=== PATIENT | female | born 1960 | race Caucasian/White ===

== ENCOUNTER → 2018-06-07 | Outpatient (CLI) | payer BC ==
[~2018-06-07] MED LIST: GADOBUTROL 10 MMOL/10 ML (GADAVIST) VIAL IV ONE
--- NOTE | 2018-06-07 16:39 | Diagnostic Imaging Report ---
PROCEDURE: MR imaging abdomen with and without contrast. TECHNIQUE: Multiplanar, multisequence MR imaging of the abdomen was performed with and without contrast. INDICATION: Followup liver lesions seen on outside imaging. COMPARISON: None available. FINDINGS: There is mild signal dropout throughout the entire liver on opposed-phase imaging, indicative of diffuse hepatic steatosis. In the left hepatic lobe, there is a well-circumscribed T2 hyperintense nonenhancing cyst measuring 10 x 7 mm. In the anterior aspect of the superior left hepatic lobe (segment William), there is a subcentimeter focus of arterial enhancement which does not washout on delayed-phase images and has vague T2 hyperintensity. There are no concerning enhancing liver lesions. The gallbladder is well distended without filling defects to indicate cholelithiasis. No biliary duct dilatation. The common bile duct measures up to 6 mm in size. No choledocholithiasis. The pancreas, spleen, kidneys, and adrenals are all normal. No abdominal lymphadenopathy. Normal-caliber abdominal aorta. IMPRESSION: 1. There are no hepatic lesions that would suggest neoplastic process. 2. There is a simple cyst and a probable capillary-type hemangioma within the left hepatic lobe. 3. Diffuse hepatic steatosis. Dictated by: Dictated on workstation # [id number]
== END ==
LOC: RAD 13:36
PROVIDERS: ATTEND Family Medicine
DX: K76.0 Fatty (change of) liver, not elsewhere classified (principal)
CPT/HCPCS: 74183

== ENCOUNTER → 2019-04-05 | Outpatient (CLI) | payer BC ==
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
== END ==
LOC: RAD 14:06
PROVIDERS: ATTEND Family Medicine
DX: M75.101 Unspecified rotator cuff tear or rupture of right shoulder, not specified as traumatic (principal); Z98.890 Other specified postprocedural states; Z87.828 Personal history of other (healed) physical injury and trauma
CPT/HCPCS: 73221

== ENCOUNTER 2019-05-14 00:07 | Emergency (ER) | payer BC ==
[~2019-05-14] VITALS: Ht 165.1 cm; Wt 95.4 kg
[2019-05-14] MEDS ORDERED: fentaNYL INJECTION 100 MCG/2 ML AMP IVP STA (00:33)
--- NOTE | 2019-05-14 00:39 | ED General ---
General Stated Complaint: SOB,PAIN IN BACK,COUGH Source of Information: Patient History of Present Illness Date Seen by Provider: May 14, 2019 Time Seen by Provider: 00:14 Initial Comments 58-year-old female presenting with complaints of shortness of breath and pain in the mouth for back. She has pleuritic chest pain along with this. She has had subjective chills and increased cough in the last 24-48 hours. She had a right shoulder surgery on Monday with [facility] and was doing well until the last 36-48 hours and then tonight she was worse this evening. She was having increased pain in the middle of her back that was not improved with pain medicine at home. She reports that her cough is dry and she is not having anything come up with coughing. She tried taking her blood pressure and vitals at home but none of her equipment was working to be able to obtain her vitals. She had some nausea this evening as well. She states that she has had a normal bowel movement. She denies any pain with urination. Allergies and Home Medications Allergies Coded Allergies: No Known Drug Allergies (Unverified , 06/07/18) Home Medications Albuterol Sulfate 18 Gm Hfa.aer.ad, 2 PUFF INH Q4H PRN for SHORTNESS OF BREATH Prescribed by: BARBARA SCHROEDER on 05/14/19219 Azithromycin 500 Mg Tablet, 500 MG PO DAILY Prescribed by: BARBARA SCHROEDER on 05/14/19219 Patient Home Medication List Home Medication List Reviewed: Yes Review of Systems Review of Systems Constitutional: chills, dizziness, fever, malaise EENTM: no symptoms reported Respiratory: cough (dry and nonproductive), short of breath; No wheezing Cardiovascular: chest pain (middle of her back); No edema Gastrointestinal: No constipation, No diarrhea; nausea; No vomiting Genitourinary: no symptoms reported Musculoskeletal: joint pain (right shoulder pain consistent with her recent surgery.) Skin: no symptoms reported Psychiatric/Neurological: Denies Headache Hematologic/Lymphatic: Denies Blood Clots, Denies Easy Bleeding, Denies Easy Bruising Past Tyabsgf-Gfnfmi-Gnyiyh Hx Past Med/Social Hx: Reviewed Nursing Past Med/Soc Hx Patient Social History Recent Foreign Travel: No Contact w/Someone Who Travel: No Past Medical History Surgeries: Yes Orthopedic (right shoulder arthroscopy) Respiratory: No Physical Exam Vital Signs Vital Signs - First Documented 05/14/19 05/14/19 00:24 01:01 Temp 36.2 Pulse 95 Resp 18 B/P (MAP) 165/85 (111) Pulse Ox 74 O2 Delivery Room Air O2 Flow Rate 2.00 Capillary Refill : Height, Weight, BMI Height: '" Weight: lbs. oz. kg; BMI Method: General Appearance: No Apparent Distress, WD/WN HEENT: PERRL/EOMI, Pharynx Normal Neck: Full Range of Motion, Normal Inspection, Non Tender, Supple; No Carotid Bruit Respiratory: Lungs Clear, Normal Breath Sounds, No Accessory Muscle Use, No Respiratory Distress; No Stridor, No Wheezing; Other (tender to palpation in the middle of her back) Cardiovascular: Regular Rate, Rhythm, Normal Peripheral Pulses Gastrointestinal: No Pulsatile Mass, Non Tender, Soft Extremity: Normal Capillary Refill, No Pedal Edema Neurologic/Psychiatric: Alert, Oriented x3, No Motor/Sensory Deficits Skin: Normal Color, Warm/Dry Progress/Results/Core Measures Suspected Sepsis SIRS Temperature: Pulse: Respiratory Rate: Laboratory Tests 05/14/19 00:32: White Blood Count 8.0 Blood Pressure / Mean: Laboratory Tests 05/14/19 00:32: Creatinine 0.88, Platelet Count 254, Total Bilirubin 0.2 Results/Orders Lab Results Laboratory Tests Test 05/14/19 00:32 Range/Units White Blood Count 8.0 4.3-11.0 10^3/uL Red Blood Count 4.74 4.35-5.85 10^6/uL Hemoglobin 14.7 11.5-16.0 G/DL Hematocrit 45 35-52 % Mean Corpuscular Volume 96 80-99 FL Mean Corpuscular Hemoglobin 31 25-34 PG Mean Corpuscular Hemoglobin Concent 33 32-36 G/DL Red Cell Distribution Width 12.9 10.0-14.5 % Platelet Count 254 130-400 10^3/uL Mean Platelet Volume 12.5 H 7.4-10.4 FL Neutrophils (%) (Auto) 64 42-75 % Lymphocytes (%) (Auto) 19 12-44 % Monocytes (%) (Auto) 10 0-12 % Eosinophils (%) (Auto) 6 0-10 % Basophils (%) (Auto) 1 0-10 % Neutrophils # (Auto) 5.1 1.8-7.8 X 10^3 Lymphocytes # (Auto) 1.6 1.0-4.0 X 10^3 Monocytes # (Auto) 0.8 0.0-1.0 X 10^3 Eosinophils # (Auto) 0.4 H 0.0-0.3 10^3/uL Basophils # (Auto) 0.1 0.0-0.1 10^3/uL Sodium Level 142 135-145 MMOL/L Potassium Level 4.1 3.6-5.0 MMOL/L Chloride Level 105 98-107 MMOL/L Carbon Dioxide Level 27 21-32 MMOL/L Anion Gap 10 5-14 MMOL/L Blood Urea Nitrogen 14 7-18 MG/DL Creatinine 0.88 0.60-1.30 MG/DL Estimat Glomerular Filtration Rate > 60 BUN/Creatinine Ratio 16 Glucose Level 110 H 70-105 MG/DL Calcium Level 10.0 8.5-10.1 MG/DL Corrected Calcium 10.2 H 8.5-10.1 MG/DL Magnesium Level 2.1 1.6-2.4 MG/DL Total Bilirubin 0.2 0.1-1.0 MG/DL Aspartate Amino Transf (AST/SGOT) 18 5-34 U/L Alanine Aminotransferase (ALT/SGPT) 18 0-55 U/L Alkaline Phosphatase 110 40-136 U/L Troponin I < 0.30 <0.30 NG/ML Pro-B-Type Natriuretic Peptide 387.0 H <75.0 PG/ML Total Protein 6.5 6.4-8.2 GM/DL Albumin 3.7 3.2-4.5 GM/DL My Orders Orders - BARBARA SCHROEDER MD Cbc With Automated Diff (05/14/19 00:31) Comprehensive Metabolic Panel (05/14/19 00:31) Magnesium (05/14/19 00:31) Ekg Tracing (05/14/19:31) O2 (05/14/19 00:31) Ed Iv/Invasive Line Start (05/14/19:31) Monitor-Rhythm Ecg Trace Only (05/14/19:31) Ct Angio Chest W (05/14/19 00:31) Troponin I Fs (05/14/19 00:31) Probnp Fs (05/14/19:31) Fentanyl Injection (Sublimaze Injection (05/14/19 00:33) Iohexol Injection (Omnipaque 350 Mg/Ml 1 (05/14/19 00:45) Received Contrast (Hold Metformin- Contr (05/14/19 00:45) Ns (Ivpb) (Sodium Chloride 0.9% Ivpb Bag (05/14/19 00:45) Albuterol/Ipra Inhalation Soln (Duoneb I (05/14/19 02:12) Azithromycin Tablet (Zithromax Tablet) (05/14/19 02:12) Ceftriaxone For Iv Use (Rocephin For I (05/14/19 02:12) Svn Small Volume Nebulizer (05/14/19 02:12) Medications Given in ED Current Medications Medications Dose Ordered Sig/Chato Route Start Time Stop Time Status Last Admin Dose Admin Iohexol 125 ml ONCE ONCE IV 05/14/19 00:45 05/14/19 00:46 DC 05/14/19 00:44 125 ML Sodium Chloride 100 ml ONCE ONCE IV 05/14/19 00:45 05/14/19 00:46 DC 05/14/19 00:44 100 ML Vital Signs/I&O 05/14/19 05/14/19 05/14/19 00:24 01:01 02:31 Temp 36.2 36.2 Pulse 95 95 Resp 18 18 B/P (MAP) 165/85 (111) 165/85 (111) Pulse Ox 74 97 97 O2 Delivery Room Air Room Air Room Air O2 Flow Rate 2.00 2.00 Capillary Refill : Progress Note #1: Progress Note With patient having recent surgery and now having shortness of breath and some pleuritic chest pain will obtain a CTA chest to evaluate for blood clot or infection of her lung. She is also a smoker so she certainly could have a postoperative pneumonia. Order a dose of fentanyl to see if that might help with her pain as well. Progress Note #2: Progress Note Labs are all stable without acute significant abnormality on her CBC or chemistry. Her CT scan does not show evidence of pulmonary embolism but she does have findings for possible early pneumonitis or pneumonia starting in the left upper lobe. With her maintaining her O2 sat and not having elevated white blood cell count Will start the patient on antibiotics to help cover for atypical bacteria since she does continue to smoke. Will give a dose of Rocephin and Zithromax here and then continue a course of Zithromax for a total of 5 days of 500 mg daily. Will also supply a nebulizer treatment here and then an inhaler for home. Counseled on follow-up and return precautions. Advised to check back through the clinic if having continued concerns or not improving. She was concerned about possible C. difficile infection and so advised to take a probiotic [id number] to help try and prevent this. ECG Initial ECG Impression Date: May 14, 2019 Initial ECG Impression Time: 01:01 Initial ECG Rate: 71 Initial ECG Rhythm: Normal Sinus Initial ECG Comparisson: No Previous ECG Available Comment Sinus rhythm with a heart rate of 71 bpm. AL interval of 156 ms. She does have a low voltage tracing. There is no prior tracing for comparison. Her QT interval is 363 ms with a QT corrected interval of 395 ms. She has no acute ST elevation or ischemic changes. Diagnostic Imaging Diagonstic Imaging: CT Plain Films/CT/US/NM/MRI: chest Comments Impression: Mild interstitial opacities with patchy groundglass opacities in the anterior left upper lobe. An early or small pneumonitis in the anterior left upper lobe is not excluded. No pulmonary artery emboli are noted. Read by radiologist Dr. Rob West M.D. Study read at 1:32 AM and faxed at 1:39 AM Reviewed: Reviewed Night [facility] Study Departure Impression Primary Impression: Pneumonia of left upper lobe due to infectious organism Additional Impression: Tobacco abuse Disposition: HOME, SELF-CARE Condition: Stable Departure-Patient Inst. Decision time for Depature: 02:16 Referrals: SELF,GUSTAVO KARIMI (PCP/Family) Primary Care Physician Patient Instructions: Pneumonia, Adult (DC), Cough, Adult (DC), Quitting Smoking Add. Discharge Instructions: Make sure to stay well hydrated and get plenty of rest Follow up with clinic for continued symptoms or more concerns Take the full course of antibiotics Take a Probiotic to try and help prevent developing Clostridium Difficile or Intestinal infection from taking the antibiotics. Scripts Albuterol Sulfate (Ventolin Hfa) 18 Gm Hfa.aer.ad 2 PUFF INH Q4H PRN for SHORTNESS OF BREATH for 30 Days, #18 GM 0 Refills Prov: BARBARA SCHROEDER MD 05/14/19 Azithromycin (Azithromycin) 500 Mg Tablet 500 MG PO DAILY for Pneumonia for 4 Days, #4 TAB 0 Refills Prov: ENYART,BARBARA E MD 05/14/19 BARBARA SCHROEDER MD May 14, 2019 00:39 POS
[2019-05-14] MEDS ORDERED: NS 100 ML (IVPB) BAG IV ONE (00:45)
[2019-05-14] MEDS ORDERED: IOHEXOL 350 MG/ML 150 ML (OMNIPAQUE 350) VIAL IV ONE (00:45)
[2019-05-14] MEDS ORDERED: HOLD METFORMIN - RECEIVED CONTRAST 20 ML VIAL IV SCH (00:45)
[2019-05-14 01:45] LABS: HEMATOCRIT 45 % (35-52); HEMOGLOBIN 14.7 G/DL (11.5-16.0); MEAN CORPUSCULAR HEMOGLOBIN 31 PG (25-34); MEAN CORPUSCULAR VOLUME 96 FL (80-99)
[2019-05-14 01:46] LABS: BASOPHILS # (AUTO) 0.1 10^3/uL (0.0-0.1); BASOPHILS % (AUTO) 1 % (0-10); EOSINOPHILS # (AUTO) 0.4 10^3/uL (0.0-0.3); EOSINOPHILS % (AUTO) 6 % (0-10); LYMPHOCYTES # (AUTO) 1.6 X 10^3 (1.0-4.0); LYMPHOCYTES % (AUTO) 19 % (12-44); MEAN CORPUSCULAR HGB CONC 33 G/DL (32-36); MEAN PLATELET VOLUME 12.5 FL (7.4-10.4); MONOCYTES # (AUTO) 0.8 X 10^3 (0.0-1.0); MONOCYTES % (AUTO) 10 % (0-12); NEUTROPHILS # (AUTO) 5.1 X 10^3 (1.8-7.8); NEUTROPHILS % (AUTO) 64 % (42-75); PLATELET COUNT 254 10^3/uL (130-400); RED CELL DISTRIBUTION WIDTH 12.9 % (10.0-14.5)
[2019-05-14] MEDS ORDERED: AZITHROMYCIN 250 MG TAB (ZITHROMAX) PO STA (02:12)
[2019-05-14] MEDS ORDERED: RT-ALBUTEROL/IPRATROPIUM 3 ML (DUONEB) VIAL INH STA (02:12)
[2019-05-14] MEDS ORDERED: cefTRIAXone FOR IV USE 1,000 MG in WATER (STERILE) FOR INJECTION 10 ML IV STA (02:12)
[2019-05-14 02:14] LABS: ALANINE AMINOTRANSFERASE 18 U/L (0-55); ALBUMIN 3.7 GM/DL (3.2-4.5); ALKALINE PHOSPHATASE 110 U/L (40-136); BILIRUBIN,TOTAL 0.2 MG/DL (0.1-1.0); BUN/CREATININE RATIO 16; CARBON DIOXIDE 27 MMOL/L (21-32); CHLORIDE 105 MMOL/L (98-107); CREATININE SERUM 0.88 MG/DL (0.60-1.30); GFR ESTIMATED > 60; GLUCOSE 110 MG/DL (70-105); MAGNESIUM 2.1 MG/DL (1.6-2.4); POTASSIUM 4.1 MMOL/L (3.6-5.0); SODIUM 142 MMOL/L (135-145); TOTAL PROTEIN 6.5 GM/DL (6.4-8.2)
[2019-05-14] MEDS ORDERED: AZIT500T5 PO (02:20)
[2019-05-14] MEDS ORDERED: ALBU18HF2 INH (02:20)
[2019-05-14 02:31] VITALS: BP 165/85
--- NOTE | 2019-05-14 07:43 | Diagnostic Imaging Report ---
PROCEDURE: CT angiography of the chest with contrast. TECHNIQUE: Multiple contiguous axial images were obtained through the chest after uneventful bolus administration of intravenous contrast. 3D reconstructed CTA MIP acquisitions were also performed. Auto Exposure Controls were utilized during the CT exam to meet ALARA standards for radiation dose reduction. INDICATION: History of shoulder surgery on 05/10/2019, today became shortness of breath and dizzy. No prior studies for comparison. FINDINGS: Lung windows demonstrate some patchy groundglass opacity in the left upper and right upper lobes. This could represent some pneumonitis. No focal consolidating pneumonia is identified, however. No large pleural effusion. No axillary or mediastinal mass or adenopathy. No thoracic aortic aneurysm or dissection. No evidence for pulmonary embolus. Thoracic degenerative changes but no acute osseous finding. IMPRESSION: 1. No evidence for pulmonary embolus. No acute thoracic aortic abnormality. 2. Patchy areas of groundglass opacity in the left and right upper lobes could represent pneumonitis or possibly some small pulmonary hemorrhages. No focal consolidating pneumonia or pleural effusion. Agree with preliminary teleradiology report. Dictated by: Dictated on workstation # [id number]
== END 2019-05-14 02:38 | disposition home or self-care (01) ==
LOC: EDUNIT# 00:07 → ER FS 00:09
DX: J18.1 Lobar pneumonia, unspecified organism (principal); F17.200 Nicotine dependence, unspecified, uncomplicated
CPT/HCPCS: 36415; 71275; 80053; 83735; 83880; 84484; 85025; 93005; 93041; 94640; 96374; 96375

== ENCOUNTER → 2019-08-06 | Outpatient (CLI) | payer BC ==
[~2019-08-06] MED LIST changes: +ALBU18HF2 INH; +AZIT500T9 PO; -GADOBUTROL 10 MMOL/10 ML (GADAVIST) VIAL IV ONE
--- NOTE | 2019-08-06 10:59 | Diagnostic Imaging Report ---
INDICATION: Postmenopausal screening for osteoporosis. COMPARISON: None FINDINGS: AP Spine L1-L4: [BMD (g/cm2): 1.199] [T-Score: 0.0] [Z-Score: 0.1] [BMD Previous: na] [BMD % Change: na] LT Hip Neck: [BMD (g/cm2): 0.903] [T-Score: -1.0] [Z-Score: -0.4] LT Hip Total: [BMD (g/cm2):0.910] [T-Score:-0.8] [Z-Score: -0.7] [BMD Previous: na] [BMD % Change: na] RT Hip Neck: [BMD (g/cm2):0.973] [T-Score:-0.5] [Z-Score:0.1] RT Hip Total: [BMD (g/cm2):0.916] [T-score:-0.7] [Z-Score:-0.6] [BMD Previous:na] [BMD % Change:na] *Indicates significant change from prior examination based on 95% confidence level. World Health Organization criteria for BMD interpretation classify patients as Normal (T-score at or above -1.0), Osteopenic (T-score between -1.0 and -2.5) or Osteoporotic (T-score at or below -2.5). LIMITATIONS AND MODIFICATION: None. FRACTURE RISK (FRAX SCORE): The ten year probability of (%): Major Osteoporotic Fracture: [na] Hip Fracture: [na] IMPRESSION: 1. Normal bone mineral density. 2. Baseline examination. 3. See below National Osteoporosis Foundation guidelines on when to potentially initiate pharmacologic therapy. Based on the National Osteoporosis Foundation Guidelines, pharmacologic treatment should be initiated in any of the following, unless clinical conditions suggest otherwise: * Any patient with prior fragility fracture of the hip or vertebrae. A spine fracture indicates 5X risk for subsequent spine fracture and 2X risk for subsequent hip fracture. * Osteoporosis (T-score <-2.5). * Postmenopausal women and men age 50 and older with low bone mass/osteopenia (T-score between -1.0 and -2.5) by DXA and 10-year major osteoporotic fracture greater than 20% or a 10-year probability of hip fracture greater than 3%. These fracture risks are supplied above in the FRAX score, if applicable. * Clinician judgement and/or patient preferences may indicate treatment for people with 10-year fracture probabilities above or below these levels. Dictated by: Dictated on workstation # [id number]
== END ==
LOC: RAD 10:23
PROVIDERS: ATTEND Family Medicine
DX: E83.52 Hypercalcemia (principal)
CPT/HCPCS: 77080

== ENCOUNTER → 2019-12-09 | Outpatient (CLI) | payer BC | LOC: LAB FS 10:49 | PROVIDERS: ATTEND Family Medicine | DX: E21.0 Primary hyperparathyroidism (principal) | CPT/HCPCS: 36415; 82310; 83970 ==

== ENCOUNTER 2020-05-26 12:42 | Emergency (ER) | payer BC ==
[~2020-05-26] VITALS: Ht 167.7 cm; Wt 98.0 kg
--- NOTE | 2020-05-26 13:34 | Diagnostic Imaging Report ---
EXAMINATION: Chest 1 view HISTORY: SOA COMPARISON: None available. FINDINGS: The lungs are clear without edema or pneumonia. No pleural effusion or pneumothorax. Heart size is normal. IMPRESSION: 1. Clear lungs. Dictated by: Dictated on workstation # [id number]
[2020-05-26 13:35] LABS: WHITE BLOOD COUNT 5.3 10^3/uL (4.3-11.0)
[2020-05-26 13:36] LABS: BASOPHILS % (AUTO) 1 % (0-10); EOSINOPHILS % (AUTO) 1 % (0-10); HEMATOCRIT 52 % (35-52); HEMOGLOBIN 16.8 G/DL (11.5-16.0); LYMPHOCYTES # (AUTO) 1.4 X 10^3 (1.0-4.0); LYMPHOCYTES % (AUTO) 26 % (12-44); MEAN CORPUSCULAR HEMOGLOBIN 30 PG (25-34); MEAN CORPUSCULAR HGB CONC 33 G/DL (32-36); MEAN CORPUSCULAR VOLUME 92 FL (80-99); MEAN PLATELET VOLUME 11.9 FL (7.4-10.4); MONOCYTES # (AUTO) 0.6 X 10^3 (0.0-1.0); MONOCYTES % (AUTO) 12 % (0-12); NEUTROPHILS # (AUTO) 3.1 X 10^3 (1.8-7.8); NEUTROPHILS % (AUTO) 60 % (42-75); PLATELET COUNT 199 10^3/uL (130-400)
[2020-05-26] MEDS ORDERED: RX-ALBUTEROL INHALER (VENTOLIN HFA) 18 GM IH STA (13:44)
[2020-05-26 13:59] LABS: ALANINE AMINOTRANSFERASE 18 U/L (0-55); ALBUMIN 3.9 GM/DL (3.2-4.5); ALKALINE PHOSPHATASE 144 U/L (40-136); BILIRUBIN,TOTAL 0.2 MG/DL (0.1-1.0); BUN/CREATININE RATIO 16; CALCIUM 9.6 MG/DL (8.5-10.1); CARBON DIOXIDE 24 MMOL/L (21-32); CHLORIDE 102 MMOL/L (98-107); CREATININE SERUM 0.96 MG/DL (0.60-1.30); GFR ESTIMATED 60; GLUCOSE 104 MG/DL (70-105); POTASSIUM 3.9 MMOL/L (3.6-5.0); SODIUM 138 MMOL/L (135-145)
--- NOTE | 2020-05-26 14:28 | ED General ---
General Chief Complaint: Respiratory Problems Stated Complaint: SOB; COVID+ Source of Information: Patient Exam Limitations: No Limitations History of Present Illness Date Seen by Provider: May 26, 2020 Time Seen by Provider: 13:30 Initial Comments Patient is a 59-year-old COVID positive female who presents with shortness of breath. Patient diagnosed 7 days ago with progressive cough, shortness of breath and chest tightness. Patient is a former smoker. Currently denies fever chills, nausea vomiting or sweats. Denies increased leg pain swelling. No history of DVT, PE congestive heart failure CAD. No other acute symptoms or complaints. 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 Timing/Duration: 1 Week Severity: Moderate Associated Systoms: Shortness of Air Allergies and Home Medications Allergies Coded Allergies: No Known Drug Allergies (Unverified , 06/07/18) Home Medications Albuterol Sulfate 18 Gm Hfa.aer.ad, 2 PUFF INH Q4H PRN for SHORTNESS OF BREATH Prescribed by: BARBARA SCHROEDER on 05/14/19219 Azithromycin 500 Mg Tablet, 500 MG PO DAILY Prescribed by: BARBARA SCHROEDER on 05/14/19219 Patient Home Medication List Home Medication List Reviewed: Yes Review of Systems Review of Systems Constitutional: see HPI EENTM: see HPI Respiratory: see HPI Cardiovascular: see HPI Genitourinary: see HPI Musculoskeletal: see HPI Skin: see HPI Psychiatric/Neurological: See HPI Hematologic/Lymphatic: See HPI Immunological/Allergic: see HPI Past Swzugvu-Chtliu-Cibppe Hx Past Med/Social Hx: Reviewed Nursing Past Med/Soc Hx Patient Social History Recent Foreign Travel: No Contact w/Someone Who Travel: No Recent Hopitalizations: Yes (SHOULDER SURGERY MONDAY) Seasonal Allergies Seasonal Allergies: No Past Medical History Surgeries: Yes Orthopedic Respiratory: No Cardiac: No Neurological: No Genitourinary: No Gastrointestinal: No Musculoskeletal: No Endocrine: No HEENT: No Cancer: No Psychosocial: No Integumentary: No Blood Disorders: No Physical Exam Vital Signs Capillary Refill : Height, Weight, BMI Height: '" Weight: lbs. oz. kg; 34.00 BMI Method: General Appearance: No Apparent Distress, WD/WN Eyes: Bilateral Eye Normal Inspection, Bilateral Eye PERRL, Bilateral Eye EOMI HEENT: PERRL/EOMI, Normal ENT Inspection, Pharynx Normal, Moist Mucous Membranes Neck: Normal Inspection, Supple Respiratory: Decreased Breath Sounds, Other Cardiovascular: Regular Rate, Rhythm, Other (negative Homans signs.) Gastrointestinal: Non Tender, Soft Extremity: Normal Capillary Refill Focused Exam Sepsis Stage: Ruled Out Progress/Results/Core Measures Suspected Sepsis SIRS Temperature: Pulse: Respiratory Rate: Laboratory Tests 05/26/20 13:08: White Blood Count 5.3 Blood Pressure / Mean: Laboratory Tests 05/26/20 13:08: Creatinine 0.96, Platelet Count 199, Total Bilirubin 0.2 Results/Orders Lab Results Laboratory Tests Test 05/26/20 13:08 Range/Units White Blood Count 5.3 4.3-11.0 10^3/uL Red Blood Count 5.61 4.35-5.85 10^6/uL Hemoglobin 16.8 H 11.5-16.0 G/DL Hematocrit 52 35-52 % Mean Corpuscular Volume 92 80-99 FL Mean Corpuscular Hemoglobin 30 25-34 PG Mean Corpuscular Hemoglobin Concent 33 32-36 G/DL Red Cell Distribution Width 13.2 10.0-14.5 % Platelet Count 199 130-400 10^3/uL Mean Platelet Volume 11.9 H 7.4-10.4 FL Immature Granulocyte % (Auto) 1 % Neutrophils (%) (Auto) 60 42-75 % Lymphocytes (%) (Auto) 26 12-44 % Monocytes (%) (Auto) 12 0-12 % Eosinophils (%) (Auto) 1 0-10 % Basophils (%) (Auto) 1 0-10 % Neutrophils # (Auto) 3.1 1.8-7.8 X 10^3 Lymphocytes # (Auto) 1.4 1.0-4.0 X 10^3 Monocytes # (Auto) 0.6 0.0-1.0 X 10^3 Eosinophils # (Auto) 0.0 0.0-0.3 10^3/uL Basophils # (Auto) 0.0 0.0-0.1 10^3/uL Immature Granulocyte # (Auto) 0.0 0.0-0.1 10^3/uL Sodium Level 138 135-145 MMOL/L Potassium Level 3.9 3.6-5.0 MMOL/L Chloride Level 102 98-107 MMOL/L Carbon Dioxide Level 24 21-32 MMOL/L Anion Gap 12 5-14 MMOL/L Blood Urea Nitrogen 15 7-18 MG/DL Creatinine 0.96 0.60-1.30 MG/DL Estimat Glomerular Filtration Rate 60 BUN/Creatinine Ratio 16 Glucose Level 104 70-105 MG/DL Calcium Level 9.6 8.5-10.1 MG/DL Corrected Calcium 9.7 8.5-10.1 MG/DL Total Bilirubin 0.2 0.1-1.0 MG/DL Aspartate Amino Transf (AST/SGOT) 24 5-34 U/L Alanine Aminotransferase (ALT/SGPT) 18 0-55 U/L Alkaline Phosphatase 144 H 40-136 U/L Troponin I < 0.30 <0.30 NG/ML Pro-B-Type Natriuretic Peptide < 5.0 <75.0 PG/ML Total Protein 7.0 6.4-8.2 GM/DL Albumin 3.9 3.2-4.5 GM/DL My Orders Orders - DIAMNOD HURD DO Cbc With Automated Diff (05/26/20 13:13) Comprehensive Metabolic Panel (05/26/20 13:13) Chest 1 View Ap/Pa Only (05/26/20 13:13) Probnp Fs (05/26/20 13:13) Troponin I Fs (05/26/20 13:13) Ekg Tracing (05/26/20 13:13) Dexamethasone Injection (Decadron Injec (05/26/20 13:15) Ekg Tracing (05/26/20 13:13) Rx-Albuterol Inhaler (Rx-Ventolin Hfa) (05/26/20 13:44) Medications Given in ED Current Medications Medications Dose Ordered Sig/Chato Route Start Time Stop Time Status Last Admin Dose Admin Dexamethasone Sodium Phosphate 4 mg ONCE ONCE IV 05/26/20 13:15 05/26/20 13:16 DC 05/26/20 14:09 4 MG Vital Signs/I&O Capillary Refill : Departure Communication (Admissions) Chest x-ray: No acute cardiopulmonary process per radiology report. EKG: No acute disease per radiology report Patient known COVID with lower respiratory tract symptoms.. Lab EKG imaging studies reviewed and nondiagnostic. Patient significant improvement with steroids and albuterol inhaler. Will continue supportive care with PCP follow- up. Return precautions reviewed. Pseudomonal Risk: No known risk Impression Primary Impression: COVID-19 Disposition: HOME, SELF-CARE Condition: Stable Departure-Patient Inst. Referrals: SELF,GUSTAVO KARIMI (PCP/Family) Primary Care Physician Patient Instructions: Coronavirus Disease 2019 (COVID-19) Overview Add. Discharge Instructions: Please take newly prescribed medications as directed and follow up with PCP in 5-7 days for reevaluation. Return to the ED if worsening symptoms or persistent oxygen levelsof less than 90 % for greater than 5 minutes. All discharge instructions reviewed with patient and/or family. Voiced understanding. Scripts Albuterol Sulfate (Albuterol Sulfate) 2.5 Mg/0.5 Ml Vial.neb 2.5 MG INH Q4H for SHORTNESS OF BREATH, #1 EACH Prov: DIAMOND HURD DO 05/26/20 Prednisone (Prednisone) 20 Mg Tab 40 MG PO DAILY, #6 TAB 0 Refills Prov: DIAMOND HURD DO 05/26/20 DIAMOND HURD DO May 26, 2020 14:28
[2020-05-26] MEDS ORDERED: ALB0.5V INH (14:29)
[2020-05-26] MEDS ORDERED: PRD20T PO (14:29)
--- NOTE | 2020-05-26 14:45 | NUR ---
DOCTOR PLANNED TO DC PT HOME, BUT WHEN WALKING TO PATIENTS ROOM, PT HAD OXYGEN SATURATION OF 90% ON ROOM AIR. PT WAS WORRIED. THIS RN WENT TO TELL DOCTOR WHO ORDERED A ABG TO DETERMINE OXYGEN SATURATION.
[2020-05-26 14:53] LABS: ABG BASE EXCESS 1.6 MMOL/L (-2.5-2.5); ABG OXYGEN SATURATION 96 % (94-100); ABG PCO2 30 MMHG (35-45); ABG PH 7.51 (7.37-7.43); ABG PO2 73 MMHG (79-93); ABG TCO2 24.8 MMOL/L (21.0-31.0); ALLENS TEST YES-POS; INSPIRED O2 ROOM AIR; VENTILATOR NO
[2020-05-26 15:30] VITALS: BP 122/67
== END 2020-05-26 15:30 | disposition home or self-care (01) ==
LOC: EDUNIT# 12:42 → ER FS 12:43
DX: U07.1 COVID-19 (principal); Z87.891 Personal history of nicotine dependence
CPT/HCPCS: 36415; 71045; 80053; 82805; 83880; 84484; 85025; 93005

== ENCOUNTER → 2021-03-26 | Outpatient (CLI) | payer BC ==
[~2021-03-26] MED LIST changes: +ALB0.5V INH; +PRD20T PO
--- NOTE | 2021-03-26 11:09 | Diagnostic Imaging Report ---
PROCEDURE: CT right lower extremity without contrast. TECHNIQUE: Axially acquired CT was obtained through the right lower extremity without intravenous contrast. Coronal and sagittal reformations were also performed. Auto Exposure Controls were utilized during the CT exam to meet ALARA standards for radiation dose reduction. INDICATION: Right hip pain, total hip replacement 3 months ago. COMPARISON: None FINDINGS: There is a right total hip arthroplasty. There is no evidence of hardware fracture or hardware loosening. Alignment appears normal. No erosive changes are seen. There is no endosteal erosion. No focal muscular atrophy is seen. There is scarring anteriorly, with no definite fluid collection seen on this noncontrast exam. No soft tissue gas or unexpected foreign bodies are identified. Suture material is noted at the right colon. IMPRESSION: 1. Right total hip arthroplasty without hardware complication seen. Dictated by: Dictated on workstation # [id number]
== END ==
LOC: RAD FS 09:50
DX: Z47.89 Encounter for other orthopedic aftercare (principal); Z96.641 Presence of right artificial hip joint
CPT/HCPCS: 73700

== ENCOUNTER 2021-09-03 15:27 | Emergency (ER) | payer BC ==
[~2021-09-03] VITALS: Ht 165.1 cm; Wt 101.0 kg
[2021-09-03] MEDS ORDERED: KETOROLAC 30 MG/ML VIAL IV STA (15:39)
[2021-09-03] MEDS ORDERED: NS IV 1000 ML 1,000 ML IV SCH ×2 (15:45)
[2021-09-03 15:47] LABS: BASOPHILS % (AUTO) 1 % (0-10); EOSINOPHILS # (AUTO) 0.1 10^3/uL (0.0-0.3); EOSINOPHILS % (AUTO) 2 % (0-10); HEMATOCRIT 47 % (35-52); HEMOGLOBIN 15.5 g/dL (11.5-16.0); LYMPHOCYTES # (AUTO) 1.4 X 10^3 (1.0-4.0); LYMPHOCYTES % (AUTO) 15 % (12-44); MEAN CORPUSCULAR HEMOGLOBIN 31 pg (25-34); MEAN CORPUSCULAR HGB CONC 33 g/dL (32-36); MEAN CORPUSCULAR VOLUME 94 fL (80-99); MEAN PLATELET VOLUME 12.1 fL (9.0-12.2); MONOCYTES # (AUTO) 0.6 X 10^3 (0.0-1.0); MONOCYTES % (AUTO) 7 % (0-12); NEUTROPHILS # (AUTO) 6.7 X 10^3 (1.8-7.8); NEUTROPHILS % (AUTO) 76 % (42-75); PLATELET COUNT 275 10^3/uL (130-400); WHITE BLOOD COUNT 8.9 10^3/uL (4.3-11.0)
[2021-09-03 15:49] LABS: BILIRUBIN,URINE NEGATIVE (NEGATIVE); CLARITY,URINE SL CLOUDY; GLUCOSE, URINE (UA) 1+ (NEGATIVE); KETONES,URINE TRACE (NEGATIVE); LEUKOCYTE ESTERASE ,URINE TRACE (NEGATIVE); NITRITE,URINE POSITIVE (NEGATIVE); PROTEIN,URINE 2+ (NEGATIVE)
--- NOTE | 2021-09-03 15:53 | ED GU-Female ---
General Stated Complaint: R LOWER BACK/ABD PAIN History of Present Illness Date Seen by Provider: Sep 03, 2021 Time Seen by Provider: 15:35 Initial Comments 61-year-old female with PMH of colon cancer in 2012 with colon resection/prior kidney stones, is here with complaints of right flank pain which progressively worsened from yesterday. Denies dysuria, fever, chest pain, abdominal pain, nausea vomiting. Patient does report some hematuria. Patient has not been drinking much water lately. Pain is colicky in nature and is 9 out of 10 at this time. Allergies and Home Medications Allergies Coded Allergies: No Known Drug Allergies (Unverified , 06/07/18) Patient Home Medication List Home Medication List Reviewed: Yes Albuterol Sulfate (Ventolin Hfa) 18 Gm Hfa.aer.ad, 2 PUFF INH Q4H PRN for SHORTNESS OF BREATH Prescribed by: BARBARA SCHROEDER on 05/14/19219 Albuterol Sulfate (Albuterol Sulfate) 2.5 Mg/0.5 Ml Vial.neb, 2.5 MG INH Q4H Prescribed by: DIAMOND HURD on 05/26/20 142 Azithromycin (Azithromycin) 500 Mg Tablet, 500 MG PO DAILY Prescribed by: BARBARA SCHROEDER on 05/14/19219 Prednisone (Prednisone) 20 Mg Tab, 40 MG PO DAILY Prescribed by: DIAMOND HURD on 05/26/201428 Review of Systems Review of Systems Constitutional: no symptoms reported EENTM: no symptoms reported Respiratory: no symptoms reported Cardiovascular: no symptoms reported Gastrointestinal: other (right CVA tenderness +) Genitourinary: flank pain, hematuria Musculoskeletal: no symptoms reported Skin: no symptoms reported Psychiatric/Neurological: No Symptoms Reported Endocrine: No Symptoms Reported Hematologic/Lymphatic: No Symptoms Reported Past Axnhnuz-Wudrmv-Letaop Hx Seasonal Allergies Seasonal Allergies: No Past Medical History Surgeries: Yes Orthopedic Respiratory: No Cardiac: No Neurological: No Genitourinary: No Gastrointestinal: No Musculoskeletal: No Endocrine: No HEENT: No Cancer: No Psychosocial: No Integumentary: No Blood Disorders: No Physical Exam Vital Signs Vital Signs - First Documented 09/03/21 15:30 Temp 36.2 Pulse 114 Resp 20 B/P (MAP) 184/106 (132) Pulse Ox 97 O2 Delivery Room Air Capillary Refill : Height, Weight, BMI Height: '" Weight: lbs. oz. kg; 34.00 BMI Method: General Appearance: moderate distress HEENT: PERRL/EOMI Cardiovascular: regular rate, rhythm Respiratory: lungs clear, normal breath sounds Gastrointestinal: normal bowel sounds, soft, no organomegaly, tenderness (right CVA tenderness present) Back: normal inspection, no vertebral tenderness Extremities: normal range of motion Neurologic/Psychiatric: mailing manager II-XII nml as tested, no motor/sensory deficits, alert, normal mood/affect, oriented x 3 Skin: normal color Progress/Results/Core Measures Suspected Sepsis SIRS Temperature: Pulse: Respiratory Rate: Laboratory Tests 09/03/21 15:40: White Blood Count 8.9 Blood Pressure / Mean: Laboratory Tests 09/03/21 15:40: Creatinine 1.02, Platelet Count 275, Total Bilirubin 0.5 Results/Orders Lab Results Laboratory Tests Test 09/03/21 15:30 09/03/21 15:40 Range/Units Urine Color ORANGE Urine Clarity SL CLOUDY Urine pH 5.0 5-9 Urine Specific [place] 1.015 L 1.016-1.022 Urine Protein 2+ H NEGATIVE Urine Glucose (UA) 1+ H NEGATIVE Urine Ketones TRACE H NEGATIVE Urine Nitrite POSITIVE H NEGATIVE Urine Bilirubin NEGATIVE NEGATIVE Urine Urobilinogen >=8.0 < = 1.0 MG/DL Urine Leukocyte Esterase TRACE H NEGATIVE Urine RBC (Auto) 2+ H NEGATIVE Urine RBC 5-10 H /HPF Urine WBC 0-2 /HPF Urine Squamous Epithelial Cells 5-10 /HPF Urine Crystals PRESENT H /LPF Urine Calcium Oxalate Crystals RARE H /LPF Urine Bacteria LARGE H /HPF Urine Casts PRESENT /LPF Urine Hyaline Casts 0-2 H /LPF Urine Mucus LARGE H /LPF Urine Culture Indicated YES White Blood Count 8.9 4.3-11.0 10^3/uL Red Blood Count 5.06 3.80-5.11 10^6/uL Hemoglobin 15.5 11.5-16.0 g/dL Hematocrit 47 35-52 % Mean Corpuscular Volume 94 80-99 fL Mean Corpuscular Hemoglobin 31 25-34 pg Mean Corpuscular Hemoglobin Concent 33 32-36 g/dL Red Cell Distribution Width 13.9 10.0-14.5 % Platelet Count 275 130-400 10^3/uL Mean Platelet Volume 12.1 9.0-12.2 fL Neutrophils (%) (Auto) 76 H 42-75 % Lymphocytes (%) (Auto) 15 12-44 % Monocytes (%) (Auto) 7 0-12 % Eosinophils (%) (Auto) 2 0-10 % Basophils (%) (Auto) 1 0-10 % Neutrophils # (Auto) 6.7 1.8-7.8 X 10^3 Lymphocytes # (Auto) 1.4 1.0-4.0 X 10^3 Monocytes # (Auto) 0.6 0.0-1.0 X 10^3 Eosinophils # (Auto) 0.1 0.0-0.3 10^3/uL Basophils # (Auto) 0.0 0.0-0.1 10^3/uL Sodium Level 138 135-145 MMOL/L Potassium Level 4.1 3.6-5.0 MMOL/L Chloride Level 103 98-107 MMOL/L Carbon Dioxide Level 24 21-32 MMOL/L Anion Gap 11 5-14 MMOL/L Blood Urea Nitrogen 14 7-18 MG/DL Creatinine 1.02 0.60-1.30 MG/DL Estimat Glomerular Filtration Rate 63 BUN/Creatinine Ratio 14 Glucose Level 181 H 70-105 MG/DL Calcium Level 10.6 H 8.5-10.1 MG/DL Corrected Calcium 10.2 H 8.5-10.1 MG/DL Total Bilirubin 0.5 0.1-1.0 MG/DL Aspartate Amino Transf (AST/SGOT) 17 5-34 U/L Alanine Aminotransferase (ALT/SGPT) 23 0-55 U/L Alkaline Phosphatase 132 40-136 U/L Total Protein 7.7 6.4-8.2 GM/DL Albumin 4.5 3.2-4.5 GM/DL My Orders Orders - MARIE BE MD Ed Iv/Invasive Line Start (09/03/21 15:39) Ketorolac Injection (Toradol Injection) (09/03/21 15:39) Ed Iv/Invasive Line Start (09/03/21 15:41) Ns Iv 1000 Ml (Sodium Chloride 0.9%) (09/03/21 15:45) Cbc With Automated Diff (09/03/21 15:42) Comprehensive Metabolic Panel (09/03/21 15:42) Ua Culture If Indicated (09/03/21 15:42) Ed Iv/Invasive Line Start (09/03/21 15:42) Ns Iv 1000 Ml (Sodium Chloride 0.9%) (09/03/21 15:45) Urine Culture (09/03/21 15:30) Ct Abd/Pelvis Wo(Kidney Stone) (09/03/21 15:39) Fosfomycin Powder (Monurol) (09/03/21 16:59) Vital Signs/I&O 09/03/21 15:30 Temp 36.2 Pulse 114 Resp 20 B/P (MAP) 184/106 (132) Pulse Ox 97 O2 Delivery Room Air Capillary Refill : Progress Note : Progress Note 1. RIGHT URETER STONE WITH HYDRONEPHROSIS AND UTI: - CT ABD: right sided stone and hydronephrosis - LABS: normal WBC - UA: Positive for nitrites and leukocyte esterase. - Toradol 15mg iv STAT and NS IVF bolus. Pain resolved with this. - Prescription for Fosfamycin 3gm once. This antibiotic was chosen because pt is very sensitive to antibiotics and develops c. diff with any long duration of antibiotics, and Fosfamycin one time dose is enough to treat UTI. - F/u with PCP and Urology - Pain control with prescription oral Ketorolac 10mg Q6H for severe pain only, advised to keep adequately hydrated -The patient was seen in the ED, and treated appropriately to presentation at a specific point in time. Patient is informed that there is a possibility that disease and illness can evolve and change in acuity rapidly or slowly after patient is discharged from the ER. Precautionary advice given to the patient for immediate return to ER if symptoms worsen or do not resolve, and to seek emergency care sooner rather than later. Pt also advised on the importance of PCP follow up and compliance with management and follow up plan. Pt verbally expressed understanding. Departure Impression Primary Impression: Right ureteral stone Additional Impressions: UTI (urinary tract infection) Qualified Codes: N39.0 - Urinary tract infection, site not specified; R31.9 - Hematuria, unspecified Hydronephrosis of right kidney Disposition: HOME, SELF-CARE Condition: Improved Departure-Patient Inst. Referrals: SELF,GUSTAVO KARIMI (PCP/Family) Primary Care Physician Patient Instructions: Renal Colic (DC), Urinary Tract Infection, Adult (DC), Kidney Stone, Adult ED Add. Discharge Instructions: - Prescription for Fosfamycin 3gm once.This antibiotic was chosen because pt is very sensitive to antibiotics and develops c. diff with any long duration of antibiotics, and Fosfamycin one time dose is enough to treat UTI. - F/u with PCP and Urology: Urologist: Dr. Bales: office number: [phone]. Call to make appointment. - Pain control with NSAID, advised to keep adequately hydrated -The patient was seen in the ED, and treated appropriately to presentation at a specific point in time. Patient is informed that there is a possibility that disease and illness can evolve and change in acuity rapidly or slowly after patient is discharged from the ER. Precautionary advice given to the patient for immediate return to ER if symptoms worsen or do not resolve, and to seek emergency care sooner rather than later. Pt also advised on the importance of PCP follow up and compliance with management and follow up plan. Pt verbally expressed understanding. Scripts Ketorolac Tromethamine (Ketorolac Tromethamine) 10 Mg Tablet 10 MG PO Q6H for 2 Days, #8 TAB Prov: MARIE BE MD 09/03/21 Fosfomycin Tromethamine (Monurol) 3 Gm Pack 3 GM PO ONCE for 1 Day, #1 EA MIX WITH 4 OUNCES OF COLD WATER Prov: MARIE BE MD 09/03/21 MARIE BE MD Sep 03, 2021 15:52
[2021-09-03 15:59] LABS: COLOR,URINE ORANGE
[2021-09-03 16:00] LABS: BACTERIA,URINE LARGE /HPF; CALCIUM OXALATE CRYSTALS,UR RARE /LPF; HYALINE CASTS, URINE 0-2 /LPF; WBC,URINE 0-2 /HPF
[2021-09-03 16:02] LABS: ALBUMIN 4.5 GM/DL (3.2-4.5); BILIRUBIN,TOTAL 0.5 MG/DL (0.1-1.0); CALCIUM 10.6 MG/DL (8.5-10.1); CREATININE SERUM 1.02 MG/DL (0.60-1.30); POTASSIUM 4.1 MMOL/L (3.6-5.0); TOTAL PROTEIN 7.7 GM/DL (6.4-8.2)
--- NOTE | 2021-09-03 16:30 | Diagnostic Imaging Report ---
EXAMINATION: CT abdomen and pelvis without contrast. TECHNIQUE: Multiple contiguous axial images were obtained through the abdomen and pelvis without the use of intravenous contrast. All CT scans use one or more of the following dose optimizing techniques: automated exposure control, MA and/or KvP adjustment based on patient size and exam type or iterative reconstruction. HISTORY: Flank pain. COMPARISON: None available. FINDINGS: Lung bases: The lung bases are clear. Solid organs: The liver is normal. The gallbladder is normal. There is no biliary ductal dilation. Pancreas is normal. Spleen is normal. Adrenal glands are normal. There is mild right hydronephrosis. Evaluation of distal right ureter is limited secondary to streak artifact from adjacent hip prosthesis. Bowel: The stomach and small bowel are normal without obstruction. The colon is unremarkable. The appendix is nonvisualized. Peritoneum: There is no intraperitoneal free fluid or free air. No suspicious lymphadenopathy. Vasculature: Calcification of the aorta without aneurysm. Musculoskeletal: No suspicious osseous lesion or compression fracture. Pelvis: The uterus is surgically absent. No adnexal mass. The urinary bladder is normal. IMPRESSION: Mild right hydronephrosis with a possible stone in the distal right ureter. Dictated by: Dictated on workstation # [id number]
[2021-09-03] MEDS ORDERED: FOSFOMYCIN 3 GM PACK (MONUROL) PO STA (16:59)
[2021-09-03] MEDS ORDERED: KETO10TA PO (17:18)
[2021-09-03] MEDS ORDERED: NF-FOSFPKT PO (17:18)
[2021-09-03 17:40] VITALS: BP 154/102
== END 2021-09-03 17:40 | disposition home or self-care (01) ==
LOC: EDUNIT# 15:27 → ER FS 15:28
DX: N13.2 Hydronephrosis with renal and ureteral calculous obstruction (principal)
CPT/HCPCS: 36415; 74176; 80053; 81000; 85025; 87088

== ENCOUNTER 2022-02-05 17:48 | Emergency (ER) | payer BC ==
[~2022-02-05] VITALS: Ht 187 cm; Wt 90.0 kg
[~2022-02-05 17:48] MED LIST changes: +KETO10TA PO; +NF-FOSFPKT PO
[2022-02-05] MEDS ORDERED: ONDANSETRON 4 MG/2 ML (SDV) Z0FRAN IVP STA (18:00)
[2022-02-05] MEDS ORDERED: fentaNYL INJ 100 MCG/2 ML AMP IVP STA ×3 (18:00→21:37)
[2022-02-05 18:02] LABS: BASOPHILS # (AUTO) 0.1 10^3/uL (0.0-0.1); BASOPHILS % (AUTO) 1 % (0-10); EOSINOPHILS # (AUTO) 0.2 10^3/uL (0.0-0.3); EOSINOPHILS % (AUTO) 2 % (0-10); HEMATOCRIT 41 % (35-52); HEMOGLOBIN 13.8 g/dL (11.5-16.0); LYMPHOCYTES # (AUTO) 1.4 10^3/uL (1.0-4.0); LYMPHOCYTES % (AUTO) 16 % (12-44); MEAN CORPUSCULAR HEMOGLOBIN 31 pg (25-34); MEAN CORPUSCULAR HGB CONC 33 g/dL (32-36); MEAN CORPUSCULAR VOLUME 92 fL (80-99); MEAN PLATELET VOLUME 11.2 fL (9.0-12.2); MONOCYTES # (AUTO) 0.8 10^3/uL (0.0-1.0); MONOCYTES % (AUTO) 9 % (0-12); NEUTROPHILS # (AUTO) 6.2 10^3/uL (1.8-7.8); NEUTROPHILS % (AUTO) 71 % (42-75); PLATELET COUNT 247 10^3/uL (130-400); WHITE BLOOD COUNT 8.7 10^3/uL (4.3-11.0)
--- NOTE | 2022-02-05 18:10 | ED GI ---
General Chief Complaint: Abdominal/GI Problems Stated Complaint: ABD PAIN Source of Information: Patient, EMS History of Present Illness Date Seen by Provider: Feb 05, 2022 Time Seen by Provider: 17:48 Initial Comments 61 yo female presenting with complaint of acute onset RUQ abdominal pain radiating to back associated with nausea and vomiting when she has the severe pain. She states she had similar symptoms about a month ago after eating spa ghetti. She had an episode of vomiting at that time and had the pain got better. She has had 2 episodes of vomiting today after eating Irish food and has not had any improvement in her pain. She has right upper quadrant abdominal pain that is radiating to her back. She denies any abdominal trauma. She has no pain with urination and no blood in her urine. She denies any change in her bowels. Timing/Duration: 1-3 Hours Severity/Quality: Severe Location: RUQ, Epigastric, Flank Radiation: RUQ, Back, Epigastric, Flank Activities at Onset: None Modifying Factors: Worsens With Eating (Symptoms seem to start after eating Irish food) Associated Symptoms: No Chest Pain, No Diaphoresis, No Fever/Chills, No Fatigue, No Headache, No Heartburn; Nausea/Vomiting (When the pain is severe it triggers her to have nausea and vomiting); No Rash, No Shortness of Air, No Swelling/Mass in Abdomen, No Syncope, No Weakness Allergies and Home Medications Allergies Coded Allergies: codeine (Verified Allergy, Unknown, 02/05/22) Patient Home Medication List Home Medication List Reviewed: Yes Albuterol Sulfate (Ventolin Hfa) 18 Gm Hfa.aer.ad, 2 PUFF INH Q4H PRN for SHORTNESS OF BREATH Prescribed by: BARBARA SCHROEDER on 05/14/19 0220 Last Action: Last Taken Edited Albuterol Sulfate (Albuterol Sulfate) 2.5 Mg/0.5 Ml Vial.neb, 2.5 MG INH Q4H Prescribed by: DIAMOND HURD on 05/26/20 1429 Last Action: Last Taken Edited Fosfomycin Tromethamine (Monurol) 3 Gm Pack, 3 GM PO ONCE Prescribed by: MARIE BE MD on 09/03/21 1718 Last Action: Last Taken Edited Metoprolol Succinate (Metoprolol Succinate) 25 Mg Tab.er.24h, 25 MG PO DAILY, (Reported) Entered as Reported by: BENEDICT WADE on 02/05/222207 Last Action: New Order Ondansetron (Ondansetron Odt) 4 Mg Tab.rapdis, 4 MG PO Q6H PRN for NAUSE A/VOMITING Prescribed by: BARBARA SCHROEDER on 02/05/22 192 Discontinued Medications Azithromycin (Azithromycin) 500 Mg Tablet, 500 MG PO DAILY Discontinued Reason: Referral/FU Appt-Addtl Prescribed by: BARBARA SCHROEDER on 05/14/19 022 Last Action: Discontinued Ketorolac Tromethamine (Ketorolac Tromethamine) 10 Mg Tablet, 10 MG PO Q6H Discontinued Reason: Referral/FU Appt-Addtl Prescribed by: MARIE BE MD on 09/03/21 171 Last Action: Discontinued Prednisone (Prednisone) 20 Mg Tab, 40 MG PO DAILY Discontinued Reason: Referral/FU Appt-Addtl Prescribed by: DIAMOND HURD on 05/26/20 1429 Last Action: Discontinued Review of Systems Review of Systems Constitutional: No chills, No fever EENTM: No Symptoms Reported Respiratory: No Symptoms Reported Cardiovascular: No Symptoms Reported Gastrointestinal: See HPI Genitourinary: Denies Burning, Denies Frequency; Flank Pain; Denies Hematuria Musculoskeletal: no symptoms reported Skin: no symptoms reported Psychiatric/Neurological: Anxiety Endocrine: No Symptoms Reported Hematologic/Lymphatic: No Symptoms Reported Past Ecudwqt-Pdgvlq-Lwflmj Hx Patient Social History Tobacco Use?: No Use of E-Cig and/or Vaping dev: No Substance use?: No Alcohol Use?: No Seasonal Allergies Seasonal Allergies: No Past Medical History Surgery/Hospitalization HX: Flat polyps in colon, Hemicolectomy, Appendectomy Surgeries: Yes Abdominal, Appendectomy, Orthopedic Respiratory: No Cardiac: No Neurological: No Genitourinary: No Gastrointestinal: No Musculoskeletal: No Endocrine: No HEENT: No Cancer: No Psychosocial: No Integumentary: No Blood Disorders: No Physical Exam Vital Signs Vital Signs - First Documented 02/05/22 18:17 Temp 37.0 Pulse 79 Resp 22 B/P (MAP) 147/82 (103) O2 Delivery Room Air Capillary Refill : Height/Weight/BMI Height: '" Weight: lbs. oz. kg; 37.00 BMI Method: General Appearance: mild distress, obese HEENT: PERRL/EOMI, pharynx normal Neck: non-tender, full range of motion, supple, normal inspection Respiratory: chest non-tender, lungs clear, normal breath sounds, no respiratory distress, no accessory muscle use Cardiovascular: normal peripheral pulses, regular rate, rhythm Gastrointestinal: normal bowel sounds, soft, no pulsatile mass; No distended, No guarding, No rebound; tenderness (RUQ and epigastric) Rectal: deferred Extremities: normal range of motion, non-tender, no calf tenderness, normal capillary refill Back: CVA tenderness (R) Neurologic/Psychiatric: alert, oriented x 3 Skin: normal color, warm/dry; No rash Images 1 - RUQ and epigastric pain worse with palpation. radiates to right CVA and flank Focused Exam Lactate Level 02/05/22 17:55: Lactic Acid Level 0.91 Lactic Acid Level Laboratory Tests Test 02/05/22 17:55 Lactic Acid Level 0.91 MMOL/L (0.50-2.00) Progress/Results/Core Measures Results/Orders Lab Results Laboratory Tests Test 02/05/22 17:55 02/05/22 20:58 02/05/22 20:59 Range/Units White Blood Count 8.7 4.3-11.0 10^3/uL Red Blood Count 4.47 3.80-5.11 10^6/uL Hemoglobin 13.8 11.5-16.0 g/dL Hematocrit 41 35-52 % Mean Corpuscular Volume 92 80-99 fL Mean Corpuscular Hemoglobin 31 25-34 pg Mean Corpuscular Hemoglobin Concent 33 32-36 g/dL Red Cell Distribution Width 12.2 10.0-14.5 % Platelet Count 247 130-400 10^3/uL Mean Platelet Volume 11.2 9.0-12.2 fL Immature Granulocyte % (Auto) 0 % Neutrophils (%) (Auto) 71 42-75 % Lymphocytes (%) (Auto) 16 12-44 % Monocytes (%) (Auto) 9 0-12 % Eosinophils (%) (Auto) 2 0-10 % Basophils (%) (Auto) 1 0-10 % Neutrophils # (Auto) 6.2 1.8-7.8 10^3/uL Lymphocytes # (Auto) 1.4 1.0-4.0 10^3/uL Monocytes # (Auto) 0.8 0.0-1.0 10^3/uL Eosinophils # (Auto) 0.2 0.0-0.3 10^3/uL Basophils # (Auto) 0.1 0.0-0.1 10^3/uL Immature Granulocyte # (Auto) 0.0 0.0-0.1 10^3/uL Sodium Level 138 135-145 MMOL/L Potassium Level 3.7 3.6-5.0 MMOL/L Chloride Level 103 98-107 MMOL/L Carbon Dioxide Level 26 21-32 MMOL/L Anion Gap 9 5-14 MMOL/L Blood Urea Nitrogen 17 7-18 MG/DL Creatinine 0.87 0.60-1.30 MG/DL Estimat Glomerular Filtration Rate 77 BUN/Creatinine Ratio 20 Glucose Level 117 H 70-105 MG/DL Lactic Acid Level 0.91 0.50-2.00 MMOL/L Calcium Level 10.0 8.5-10.1 MG/DL Corrected Calcium 10.2 H 8.5-10.1 MG/DL Total Bilirubin 0.5 0.1-1.0 MG/DL Aspartate Amino Transf (AST/SGOT) 70 H 5-34 U/L Alanine Aminotransferase (ALT/SGPT) 36 0-55 U/L Alkaline Phosphatase 126 40-136 U/L Troponin I < 0.30 <0.30 NG/ML Total Protein 6.4 6.4-8.2 GM/DL Albumin 3.7 3.2-4.5 GM/DL Lipase 24 8-78 U/L Urine Color YELLOW Urine Clarity CLEAR Urine pH 6.0 5-9 Urine Specific [place] >=1.030 1.016-1.022 Urine Protein NEGATIVE NEGATIVE Urine Glucose (UA) NEGATIVE NEGATIVE Urine Ketones NEGATIVE NEGATIVE Urine Nitrite NEGATIVE NEGATIVE Urine Bilirubin NEGATIVE NEGATIVE Urine Urobilinogen 0.2 < = 1.0 MG/DL Urine Leukocyte Esterase NEGATIVE NEGATIVE Urine RBC (Auto) TRACE-I H NEGATIVE Urine RBC 10-25 H /HPF Urine WBC 5-10 H /HPF Urine Squamous Epithelial Cells 10-25 H /HPF Urine Crystals NONE /LPF Urine Bacteria FEW H /HPF Urine Casts NONE /LPF Urine Mucus MODERATE H /LPF Urine Culture Indicated NO SARS-CoV-2 RNA (RT-PCR) Not Detected Not Detecte My Orders Orders - BARBARA SCHROEDER MD Comprehensive Metabolic Panel (02/05/22 17:57) Lipase (02/05/22 17:57) Ed Iv/Invasive Line Start (02/05/22 17:57) Cbc With Automated Diff (02/05/22 17:57) Lactic Acid Analyzer (02/05/22 17:57) Troponin I Fs (02/05/22 17:59) Fentanyl Inj (Sublimaze Injection) (02/05/22 18:00) Ondansetron Injection (Zofran Injectio (02/05/22 18:00) Ct Abdomen/Pelvis Wo (02/05/22 18:04) Ketorolac Injection (Toradol Injection) (02/05/22 19:15) Rx-Ondansetron Po (Rx-Zofran Po) (02/05/22 19:15) Fentanyl Inj (Sublimaze Injection) (02/05/22 20:14) Covid 19 Inhouse Test (02/05/22 20:54) Ua Culture If Indicated (02/05/22 21:05) Fentanyl Inj (Sublimaze Injection) (02/05/22 21:37) Medications Given in ED Current Medications Medications Dose Ordered Sig/Chato Route Start Time Stop Time Status Last Admin Dose Admin Ketorolac Tromethamine 30 mg ONCE ONCE IVP 02/05/22 19:15 02/05/22 19:16 DC 02/05/22 19:23 30 MG Vital Signs/I&O 02/05/22 02/05/22 18:17 19:23 Temp 37.0 37.0 Pulse 79 Resp 22 B/P (MAP) 147/82 (103) O2 Delivery Room Air Progress Progress Note #1: Progress Note Check labs and urinalysis. Obtain a CT scan of the abdomen pelvis without contrast since she has a history of kidney stones. Administer Zofran IV for nausea, fentanyl IV for pain. She states that she is allergic to an anti- inflammatory but she cannot remember what one and that it is in her chart however there is nothing listed. Progress Note #2: Time: 18:44 Progress Note CBC and chemistry are stable without acute significant abnormality to account for her symptoms. The lactic acid was negative and her troponin was negative at less than 0.3. CT scan does not show any acute abnormality in the right upper quadrant to account for her symptoms. There is no obstruction, signs of cholecy stitis, pancreatitis, diverticulitis, colitis, bowel obstruction. There is no definite kidney stone showing on the CT scan either. Will review results with patient and family and see what her symptoms are doing at this point. If she has improved pain and nausea and she could be discharged to home on a bland low- fat diet and schedule an outpatient ultrasound to evaluate her gallbladder. When discussed with pt and family she was laughing and joking about not being able to eat anything good when I reviewed low fat bland diet. I ordered Toradol as she stated she was still having some pain. Reviewed outpt process for ultrasound and follow up. When nurse went to give Toradol and review discharge she was complaining of severe pain and suddenly felt that she could not go home due to the severe pain that was not resolving with pain shots and refused local admit and would only want to go to [facility]. 1945 Call placed to [facility] and spoke with NICK Cota. She took information on the patient and will check with medical sales specialist and facilities and call back. 2009 NICK Cota, with [facility] called back and stated that they had no bed availability anywhere in the [facility]. she had also checked with the medical sales specialist but as they had no bed availability they had to decline the patient for transfer. Will order additional Fentanyl dose for the patient and review findings with her to see if she had changed her mind about [place] or if there was another facility she would want me to try calling for her intractable RUQ abdominal pain. 2048 Patient and family had decided they would be willing to go to [facility]. Call placed to [facility] and given information for them to contact resident on for hospitalist. 2108 Dr. Edwards called back with [facility] and accepted on behalf of Dr. Adams for observation admit for intractable RUQ abdominal pain. Progress Note #3: Time: 22:24 Progress Note Patient was still complaining of right upper quadrant abdominal pain while waiting on EMS transport. A repeat dose of fentanyl 50 mcg was administered prior to transport. Diagnostic Imaging Diagonstic Imaging: CT Plain Films/CT/US/NM/MRI: abdomen, pelvis Comments NAME: MIKE FOSTER Neli MED REC#: [id number] PT STATUS: REG ER : 1960 PHYSICIAN: BARBARA SCHROEDER MD ADMIT DATE: 02/05/22/ER FS Draft Date of Exam:02/05/22 CT ABDOMEN/PELVIS WO PROCEDURE: CT abdomen and pelvis without contrast. TECHNIQUE: Multiple contiguous axial images were obtained through the abdomen and pelvis without the use of intravenous contrast. Auto Exposure Controls were utilized during the CT exam to meet ALARA standards for radiation dose reduction. INDICATION: Right upper quadrant abdominal pain with nausea and emesis. COMPARISON: 09/03/2021. FINDINGS: Unenhanced images of liver and spleen reveal no new abnormality. Lucency in the lateral segment of left hepatic lobe is stable. There is fatty infiltration in the liver. No gallbladder abnormality is seen. There is no evidence of pancreatic, adrenal gland or splenic abnormality. Kidneys are also unremarkable in appearance. There is no hydronephrosis or evidence of urinary tract calculus. No bowel obstruction is seen. Surgical findings are seen at the level of the cecum likely related to previous appendectomy. There is artifact from right hip prosthesis. No definite bladder abnormality is seen. There is no evidence of pathologically enlarged adenopathy or organized fluid collection. IMPRESSION: Hepatic steatosis without acute abnormality identified within the abdomen or pelvis. Dictated on workstation # [id number] Dict: 02/05/22 1825 Trans: 02/05/22 1834 [facility] [id number] Interpreted by: ANA SHOEMAKER MD Electronically signed by: Reviewed: Reviewed by Me Departure Impression Primary Impression: Intractable right upper quadrant abdominal pain Additional Impressions: RUQ abdominal pain Bilious vomiting with nausea Disposition: XF SHT-TRM HOSP Condition: Stable Transfer Transfer Reason: Patient preference Time Spoke to Accepting Phy: 21:09 Transfer Progress Notes 2048 Patient and family had decided they would be willing to go to [facility]. Call placed to [facility] and given information for them to contact resident on for hospitalist. 2108 Dr. Edwards called back with [facility] and accepted on behalf of Dr. Adams for observation admit for intractable RUQ abdominal pain. Transfer Facility: [facility] Method of Transfer: EMS Departure-Patient Inst. Decision time for Depature: 19:14 Referrals: GUSTAVO GREENWOOD MD (PCP) Primary Care Physician ADAM DEMPSEY DO Patient Instructions: Abdominal Pain, Adult ED, Gallbladder Diet, Nausea and Vomiting, Adult ED Add. Discharge Instructions: Stay well-hydrated and drink plenty of fluids. Follow a strict low-fat bland gallbladder diet. Call Monday morning after 8 or 8:30 AM to the [facility] at [phone]. Let them know that you have an order for an ultrasound to see if Jennifer is available to do the gallbladder ultrasound. Alternatively you could call [facility] radiology scheduling at [phone] between 7 and 7:30 AM Monday. They could give you time to be set up for outpatient ultrasound. Also they have a tech that comes here to [place] on Monday and that could do the ultrasound. If your pain persist or is not improving, fever over 101 Fahrenheit, uncontrolled vomiting these would all be reasons to be seen again. If the ultrasound does not show gallstones you may also need to have a nuclear medicine test to look at the function of your gallbladder. If this still is not showing a reason for your pain, you may just need to have a consult with the surgeon and they may still need to remove your gallbladder or discuss options to treat your pain and symptoms All discharge instructions reviewed with patient and/or family. Voiced understanding. Scripts Ondansetron (Ondansetron Odt) 4 Mg Tab.rapdis 4 MG PO Q6H PRN for NAUSEA/VOMITING for 5 Days, #20 TAB 0 Refills Prov: BARBARA SCHROEDER MD 02/05/22 BARBARA SCHROEDER MD Feb 05, 2022 18:10
[2022-02-05 18:26] LABS: ALANINE AMINOTRANSFERASE 36 U/L (0-55); ALBUMIN 3.7 GM/DL (3.2-4.5); ALKALINE PHOSPHATASE 126 U/L (40-136); BILIRUBIN,TOTAL 0.5 MG/DL (0.1-1.0); BUN/CREATININE RATIO 20; CARBON DIOXIDE 26 MMOL/L (21-32); CHLORIDE 103 MMOL/L (98-107); CREATININE SERUM 0.87 MG/DL (0.60-1.30); GFR ESTIMATED 77; GLUCOSE 117 MG/DL (70-105); LIPASE 24 U/L (8-78); POTASSIUM 3.7 MMOL/L (3.6-5.0); SODIUM 138 MMOL/L (135-145); TOTAL PROTEIN 6.4 GM/DL (6.4-8.2)
--- NOTE | 2022-02-05 18:36 | Diagnostic Imaging Report ---
PROCEDURE: CT abdomen and pelvis without contrast. TECHNIQUE: Multiple contiguous axial images were obtained through the abdomen and pelvis without the use of intravenous contrast. Auto Exposure Controls were utilized during the CT exam to meet ALARA standards for radiation dose reduction. INDICATION: Right upper quadrant abdominal pain with nausea and emesis. COMPARISON: 09/03/2021. FINDINGS: Unenhanced images of liver and spleen reveal no new abnormality. Lucency in the lateral segment of left hepatic lobe is stable. There is fatty infiltration in the liver. No gallbladder abnormality is seen. There is no evidence of pancreatic, adrenal gland or splenic abnormality. Kidneys are also unremarkable in appearance. There is no hydronephrosis or evidence of urinary tract calculus. No bowel obstruction is seen. Surgical findings are seen at the level of the cecum likely related to previous appendectomy. There is artifact from right hip prosthesis. No definite bladder abnormality is seen. There is no evidence of pathologically enlarged adenopathy or organized fluid collection. IMPRESSION: Hepatic steatosis without acute abnormality identified within the abdomen or pelvis. Dictated by: Dictated on workstation # [id number]
[2022-02-05] MEDS ORDERED: KETOROLAC 30 MG/ML VIAL IVP ONE (19:15)
[2022-02-05] MEDS ORDERED: ONDA4TAB11 PO (19:20)
[2022-02-05] MEDS: RX-ONDANSETRON 4 MG ODT (ZOFRAN) PPK #4 PO PRN ×2 (19:23→19:32)
[2022-02-05 21:11] LABS: BILIRUBIN,URINE NEGATIVE (NEGATIVE); CLARITY,URINE CLEAR; COLOR,URINE YELLOW; GLUCOSE, URINE (UA) NEGATIVE (NEGATIVE); KETONES,URINE NEGATIVE (NEGATIVE); LEUKOCYTE ESTERASE ,URINE NEGATIVE (NEGATIVE); NITRITE,URINE NEGATIVE (NEGATIVE); PROTEIN,URINE NEGATIVE (NEGATIVE)
[2022-02-05 21:15] LABS: BACTERIA,URINE FEW /HPF
[2022-02-05] MEDS ORDERED: MTP25TSR PO (22:08)
[2022-02-05 22:30] VITALS: BP 140/91
== END 2022-02-05 22:30 | disposition short-term general hospital (02) ==
LOC: EDUNIT# 17:48 → ER FS 17:50
DX: R10.11 Right upper quadrant pain (principal); R11.14 Bilious vomiting; R11.0 Nausea; Z20.822 Contact with and (suspected) exposure to COVID-19; E66.9 Obesity, unspecified; Z68.37 Body mass index [BMI] 37.0-37.9, adult; Z28.310 Unvaccinated for COVID-19
CPT/HCPCS: 36415; 74176; 80053; 81000; 83605; 83690; 84484; 85025; 87636

== ENCOUNTER → 2022-05-02 | Outpatient (CLI) | payer BC ==
[~2022-05-02] MED LIST changes: +MTP25TSR PO; +ONDA4TAB11 PO
== END ==
LOC: LAB FS 09:28
PROVIDERS: ATTEND Otolaryngology Plastic Surgery within the Head & Neck
DX: E21.0 Primary hyperparathyroidism (principal); H81.10 Benign paroxysmal vertigo, unspecified ear
CPT/HCPCS: 36415; 82310; 83970